=== PATIENT | female | born 1930 | race Caucasian/White ===

== ENCOUNTER 2017-05-20 15:13 | Emergency (ER) | payer MEDICARE ==
[2011-09-16 09:57] VITALS: BMI 27.5
[2017-05-20 18:13] LABS: BASOPHILS 0.4 % (0-2); EOSINOPHILS 1.8 % (0-7); HEMATOCRIT 44.3 % (36.0-48.0); HEMOGLOBIN 14.8 g/dL (12-16); IMMATURE GRANULOCYTES 0.3 % (0-5); LYMPHOCYTES 33.6 % (15-50); MCHC 33.4 g/dL (31.0-37.0); MCV 92.9 fL (80.0-100.0); MEAN PLATELET VOLUME 10.2 fL (7.4-10.4); MONOCYTES 10.9 % (2-11); PLATELET COUNT 198 10x3/uL (130-400); RBC 4.77 10x6/uL (4.00-5.40); RDW 14.2 % (11.5-14.5); WBC 7.6 10x3/uL (4.8-10.8)
[2017-05-20 18:27] LABS: ALBUMIN 3.7 g/dL (3.4-5.0); ALKALINE PHOSPHATASE 98 U/L (46-116); ALT (SGPT) 17 U/L (10-68); BILIRUBIN - TOTAL 0.52 mg/dL (0.2-1.3); CALC OSMOLALITY 280 mosm/kg (275-300); CALCIUM 9.1 mg/dL (8.5-10.1); CHLORIDE - SERUM 105 mmol/L (98-107); CREATININE - SERUM 0.9 mg/dL (0.6-1.3); GLUCOSE 84 mg/dL (74-106); POTASSIUM - SERUM 3.8 mmol/L (3.5-5.1); PROTEIN - SERUM 7.1 g/dL (6.4-8.2); SODIUM 140 mmol/L (136-145); UREA NITROGEN 22 mg/dL (7-18); eGFR NON AFRICAN AMERICAN 63 mL/min (90-120)
[2017-05-20 18:43] LABS: TROPONIN-I < 0.017 ng/mL (0.000-0.060)
== END 2017-05-20 19:55 | disposition home or self-care (01) ==
LOC: D.ER 15:13
PROVIDERS: Physician Assistant Medical
DX: T14.8XXA Other injury of unspecified body region, initial encounter (principal); X58.XXXA Exposure to other specified factors, initial encounter; Y93.89 Activity, other specified; Y92.019 Unspecified place in single-family (private) house as the place of occurrence of the external cause; R00.1 Bradycardia, unspecified; I45.10 Unspecified right bundle-branch block; I44.0 Atrioventricular block, first degree

== ENCOUNTER 2017-06-03 13:46 | Emergency (ER) | payer MEDICARE ==
[2011-09-16 09:57] VITALS: BMI 27.5
== END 2017-06-03 17:00 | disposition home or self-care (01) ==
LOC: D.ER 13:46
DX: S00.03XA Contusion of scalp, initial encounter (principal); W07.XXXA Fall from chair, initial encounter; Y93.89 Activity, other specified; Y92.019 Unspecified place in single-family (private) house as the place of occurrence of the external cause; M54.2 Cervicalgia; I10 Essential (primary) hypertension; I44.0 Atrioventricular block, first degree; I45.10 Unspecified right bundle-branch block

== ENCOUNTER 2017-06-26 09:57 | Inpatient (IN) | payer MEDICARE ==
[~2017-06-26] VITALS: Ht 160 cm; Wt 70.7 kg
--- NOTE | ~2017-06-26 | EC ---
PATIENT:ISABELLE BAGLEY DATE OF SERVICE: 06/26/17 SEX: F MEDICAL RECORD: [id number] DATE OF : 30 LOCATION:D.M2 D.211 AGE OF PATIENT: 86 ADMISSION DATE: 06/26/17 REFERRING PHYSICIAN: INTERPRETING PHYSICIAN: APRIL DESHPANDE MD ECHOCARDIOGRAM REPORT ECHO CHARGES 4 ECHO COMPLETE Date: 06/27 CLINICAL DIAGNOSIS: SYNCOPE ECHOCARDIOGRAPHIC MEASUREMENTS (adult normal given) AC root (d.<3.7cm) 3.1 cm LV Septum d (<1.2 cm> 1.6 cm Valve Excursion 1.9 cm LV Septum (systole) 2.2 cm Left Atria (s.<4.0cm> 3.7 cm LVPW d(<1.2cm) 1.4 cm RV (d.<2.3cm) 2.5 cm LVPW (sytole) 2.2 cm LV diastole(<5.6CM) 4.8 cm MV E-F(>70mm/sec) cm LV systole 2.3 cm LVOT Diameter 1.9 cm MV exc.(>10mm) cm Est.ejection fraction (50-75%) % DOPPLER: LVIT cm/sec A 117 cm/sec E 63.0 cm/sec LA cm/sec RVSP 45.0 mmHg LVOT 100 cm/sec AOP1/2T m/s Asc. Ao 140 cm/sec RVOT 85.0 cm/sec RA cm/sec PA 96.0 cm/sec AV Gradient Peak 7.9 mmHg AV Mean 4.1 mmHg AV Area 2.2 cm MV Gradient Peak 7.6 mmHg MV Mean 2.4 mmHg MV Area cm COMMENTS: Wireline Operator: 1 RENA LOPEZOE Plater Hot Dip: 1 Dr. Deshpande TAPE# PACS Pericardial Effusion N DATE OF SERVICE: PROCEDURE: Echocardiogram. FINDINGS: 1. Left ventricular chamber size is within normal limits. Left ventricular systolic function is normal. Overall ejection fraction estimated at 65%. 2. Left atrium, right atrium, and right ventricle chamber sizes are within normal limits. 3. Valvular structures have normal structure and motion. ECHOCARDIOGRAM REPORT [id number] ISABELLE BAGLEY 4. Doppler interrogation reveals trace mitral regurgitation, moderate tricuspid regurgitation, no other valvular insufficiency or stenosis. Pulmonary systolic pressure is estimated at 45 mmHg. 5. No evidence of pericardial effusion or left ventricular thrombus. TRANSINT:[id number] Voice Confirmation ID: [id number] DOCUMENT ID: [id number] APRIL DESHPANDE MD at 0956 CC: [id number] DICTATION DATE: 06/28/17 1134 GROUP PROGRAM MANAGER: 06/28/17 1416 DIS IN 06/28/17 [place] [id number] [place] [id number]
[2017-06-26 10:52] LABS: BASOPHILS 0.4 % (0-2); EOSINOPHILS 1.8 % (0-7); HEMATOCRIT 45.5 % (36.0-48.0); HEMOGLOBIN 15.2 g/dL (12-16); IMMATURE GRANULOCYTES 0.2 % (0-5); LYMPHOCYTES 24.8 % (15-50); MCH 30.8 pg (26.0-34.0); MCHC 33.4 g/dL (31.0-37.0); MCV 92.3 fL (80.0-100.0); MEAN PLATELET VOLUME 10.3 fL (7.4-10.4); MONOCYTES 9.9 % (2-11); NEUTROPHILS 62.9 % (40-80); PLATELET COUNT 207 10x3/uL (130-400); RBC 4.93 10x6/uL (4.00-5.40); RDW 14.3 % (11.5-14.5); WBC 5.5 10x3/uL (4.8-10.8)
[2017-06-26 11:19] LABS: APPEARANCE CLEAR (CLEAR); BILIRUBIN NEGATIVE (NEGATIVE); COLOR YELLOW (YELLOW); GLUCOSE NEGATIVE (NEGATIVE); KETONE NEGATIVE (NEGATIVE); NITRITE NEGATIVE (NEGATIVE); PROTEIN NEGATIVE (NEGATIVE); SPECIFIC GRAVITY 1.005 (1.005-1.020); UROBILINOGEN NORMAL (NORMAL)
[2017-06-26 11:20] LABS: BACTERIA FEW /hpf (NONE SEEN); EPITHELIAL CELLS 0-5 /hpf (0-5); RED CELLS - URINE 0-5 /hpf (0-5); WHITE CELLS - URINE 0-5 /hpf (0-5)
[2017-06-26 11:29] LABS: ALBUMIN 3.5 g/dL (3.4-5.0); ALKALINE PHOSPHATASE 203 U/L (46-116); ALT (SGPT) 18 U/L (10-68); CALC OSMOLALITY 280 mosm/kg (275-300); CALCIUM 8.9 mg/dL (8.5-10.1); CARBON DIOXIDE 27.5 mmol/L (21.0-32.0); CHLORIDE - SERUM 106 mmol/L (98-107); CREATININE - SERUM 0.9 mg/dL (0.6-1.3); GLUCOSE 100 mg/dL (74-106); PROTEIN - SERUM 7.2 g/dL (6.4-8.2); SODIUM 140 mmol/L (136-145); UREA NITROGEN 19 mg/dL (7-18); eGFR NON AFRICAN AMERICAN 63 mL/min (90-120)
[2017-06-26 11:38] LABS: CREATINE KINASE 71 UL (21-215); PRO BNP 992 pg/mL (0-450); TROPONIN-I < 0.017 ng/mL (0.000-0.060)
[2017-06-26 19:49] VITALS: BP 162/64; Ht 160 cm; Wt 70.7 kg
[2017-06-26 20:00] VITALS: BP 162/64
[2017-06-26] MEDS ORDERED: LOPRESSOR25 MG PO (20:02)
[2017-06-26] MEDS ORDERED: BAYER CHEWABLE81 MG PO (20:02)
[2017-06-26] MEDS ORDERED: PRAVASTATIN SOD10 MG PO (20:02)
[2017-06-26] MEDS ORDERED: LISINOPRIL5 MG PO (20:02)
[2017-06-27] VITALS (8 sets, daily range): BP systolic 135–163; BP diastolic 55–78
[2017-06-27 06:06] LABS: BASOPHILS 0.2 % (0-2); EOSINOPHILS 2.4 % (0-7); HEMATOCRIT 41.6 % (36.0-48.0); HEMOGLOBIN 13.7 g/dL (12-16); IMMATURE GRANULOCYTES 0.4 % (0-5); LYMPHOCYTES 31.6 % (15-50); MCH 30.6 pg (26.0-34.0); MCHC 32.9 g/dL (31.0-37.0); MCV 92.9 fL (80.0-100.0); MEAN PLATELET VOLUME 10.3 fL (7.4-10.4); MONOCYTES 9.7 % (2-11); NEUTROPHILS 55.7 % (40-80); PLATELET COUNT 193 10x3/uL (130-400); RBC 4.48 10x6/uL (4.00-5.40); RDW 14.4 % (11.5-14.5); WBC 5.5 10x3/uL (4.8-10.8)
[2017-06-27 06:25] LABS: CALCIUM 8.3 mg/dL (8.5-10.1); CARBON DIOXIDE 27.1 mmol/L (21.0-32.0); CREATININE - SERUM 0.9 mg/dL (0.6-1.3); POTASSIUM - SERUM 4.1 mmol/L (3.5-5.1)
[2017-06-28] VITALS (7 sets, daily range): BP systolic 132–188; BP diastolic 50–102
[2017-06-28 06:33] LABS: BASOPHILS 0.3 % (0-2); HEMATOCRIT 42.4 % (36.0-48.0); HEMOGLOBIN 14.1 g/dL (12-16); IMMATURE GRANULOCYTES 0.2 % (0-5); MCH 30.7 pg (26.0-34.0); MCHC 33.3 g/dL (31.0-37.0); MCV 92.4 fL (80.0-100.0); MEAN PLATELET VOLUME 10.4 fL (7.4-10.4); MONOCYTES 9.9 % (2-11); NEUTROPHILS 54.6 % (40-80); PLATELET COUNT 208 10x3/uL (130-400); RBC 4.59 10x6/uL (4.00-5.40); RDW 14.3 % (11.5-14.5); WBC 5.9 10x3/uL (4.8-10.8)
[2017-06-28 06:54] LABS: ANION GAP 14.1 mmol/L (8-16); CALCIUM 8.2 mg/dL (8.5-10.1); CARBON DIOXIDE 24.9 mmol/L (21.0-32.0)
== END 2017-06-28 17:11 | disposition home or self-care (01) | DRG 312 ==
LOC: D.ER 09:57 → D.EDHOLD 13:50 → D.M2 13:50
PROVIDERS: Family Medicine; Nurse Practitioner Family
DX: R55 Syncope and collapse (principal); R00.1 Bradycardia, unspecified; I10 Essential (primary) hypertension; T44.7X5A Adverse effect of beta-adrenoreceptor antagonists, initial encounter; Y92.009 Unspecified place in unspecified non-institutional (private) residence as the place of occurrence of the external cause; Z86.73 Personal history of transient ischemic attack (TIA), and cerebral infarction without residual deficits

== ENCOUNTER 2017-11-02 18:32 | Observation (INO) | payer MEDICARE ==
[~2017-11-02] VITALS: Ht 160 cm; Wt 68.0 kg
[~2017-11-02 18:32] MED LIST: BAYER CHEWABLE81 MG PO; LISINOPRIL5 MG PO; LOPRESSOR25 MG PO; PRAVASTATIN SOD10 MG PO
[2017-11-02 19:00] LABS: BASOPHILS 0.3 % (0-2); EOSINOPHILS 1.9 % (0-7); HEMATOCRIT 44.1 % (36.0-48.0); HEMOGLOBIN 14.6 g/dL (12-16); IMMATURE GRANULOCYTES 0.1 % (0-5); LYMPHOCYTES 34.1 % (15-50); MCH 30.5 pg (26.0-34.0); MCHC 33.1 g/dL (31.0-37.0); MCV 92.1 fL (80.0-100.0); MEAN PLATELET VOLUME 10.6 fL (7.4-10.4); MONOCYTES 12.6 % (2-11); PLATELET COUNT 205 10x3/uL (130-400); RBC 4.79 10x6/uL (4.00-5.40); RDW 14.1 % (11.5-14.5); WBC 7.8 10x3/uL (4.8-10.8)
[2017-11-02 19:21] LABS: ALBUMIN 3.5 g/dL (3.4-5.0); ALKALINE PHOSPHATASE 95 U/L (46-116); ALT (SGPT) 15 U/L (10-68); BILIRUBIN - TOTAL 0.52 mg/dL (0.2-1.3); CALC OSMOLALITY 282 mosm/kg (275-300); CALCIUM 8.3 mg/dL (8.5-10.1); CARBON DIOXIDE 26.3 mmol/L (21.0-32.0); CHLORIDE - SERUM 106 mmol/L (98-107); CREATININE - SERUM 1.2 mg/dL (0.6-1.3); GLUCOSE 91 mg/dL (74-106); POTASSIUM - SERUM 4.2 mmol/L (3.5-5.1); SODIUM 140 mmol/L (136-145); UREA NITROGEN 25 mg/dL (7-18); eGFR NON AFRICAN AMERICAN 45 mL/min (90-120)
[2017-11-02 19:30] VITALS: BP 157/81
[2017-11-02 19:32] LABS: CKMB 1.4 U/L (0.0-3.6); CREATINE KINASE 69 UL (21-215)
[2017-11-02 19:33] LABS: TROPONIN-I < 0.017 ng/mL (0.000-0.060)
[2017-11-02 20:30] VITALS: BP 166/62
[2017-11-02 21:30] VITALS: BP 182/74
[2017-11-02 21:38] LABS: APPEARANCE CLEAR (CLEAR); BACTERIA FEW /hpf (NONE SEEN); BILIRUBIN NEGATIVE (NEGATIVE); COLOR YELLOW (YELLOW); EPITHELIAL CELLS 0-5 /hpf (0-5); GLUCOSE NEGATIVE (NEGATIVE); KETONE NEGATIVE (NEGATIVE); NITRITE NEGATIVE (NEGATIVE); PROTEIN NEGATIVE (NEGATIVE); RED CELLS - URINE 0-5 /hpf (0-5); UROBILINOGEN NORMAL (NORMAL); WHITE CELLS - URINE 0-5 /hpf (0-5)
[2017-11-02 22:00] VITALS: BP 169/78
[2017-11-02 23:59] VITALS: Ht 160 cm; Wt 68.0 kg
[2017-11-03 04:00] VITALS: BP 133/68
[2017-11-03 05:39] LABS: BASOPHILS 0.2 % (0-2); EOSINOPHILS 2.3 % (0-7); HEMATOCRIT 40.6 % (36.0-48.0); HEMOGLOBIN 13.9 g/dL (12-16); IMMATURE GRANULOCYTES 0.4 % (0-5); LYMPHOCYTES 39.4 % (15-50); MCH 31.3 pg (26.0-34.0); MCHC 34.2 g/dL (31.0-37.0); MCV 91.4 fL (80.0-100.0); MEAN PLATELET VOLUME 10.6 fL (7.4-10.4); MONOCYTES 9.8 % (2-11); NEUTROPHILS 47.9 % (40-80); PLATELET COUNT 191 10x3/uL (130-400); RBC 4.44 10x6/uL (4.00-5.40); RDW 14.1 % (11.5-14.5)
[2017-11-03 05:48] LABS: WBC 5.6 10x3/uL (4.8-10.8)
[2017-11-03 05:58] LABS: CALC OSMOLALITY 281 mosm/kg (275-300); CARBON DIOXIDE 27.8 mmol/L (21.0-32.0); CHLORIDE - SERUM 106 mmol/L (98-107); GLUCOSE 96 mg/dL (74-106); POTASSIUM - SERUM 4.2 mmol/L (3.5-5.1); SODIUM 139 mmol/L (136-145); UREA NITROGEN 24 mg/dL (7-18); eGFR NON AFRICAN AMERICAN 55 mL/min (90-120)
[2017-11-03 06:00] LABS: TROPONIN-I < 0.017 ng/mL (0.000-0.060)
[2017-11-03 08:06] VITALS: BP 150/75
== END 2017-11-03 12:34 | disposition home or self-care (01) ==
LOC: D.ER 18:32 → D.M2 21:06 → D.EDHOLD 21:06 → OBSVTIME 21:06 → D.M2 22:58
PROVIDERS: Family Medicine
DX: R07.9 Chest pain, unspecified (principal); Z86.73 Personal history of transient ischemic attack (TIA), and cerebral infarction without residual deficits; I10 Essential (primary) hypertension; N39.0 Urinary tract infection, site not specified

== ENCOUNTER 2017-11-04 16:18 | Emergency (ER) | payer MEDICARE ==
[~2017-11-04] VITALS: Ht 160 cm; Wt 68.2 kg
[2017-11-04 16:29] VITALS: Ht 160 cm; Wt 68.2 kg
[2017-11-04 17:38] LABS: BASOPHILS 0.4 % (0-2); EOSINOPHILS 1.3 % (0-7); HEMATOCRIT 43.8 % (36.0-48.0); HEMOGLOBIN 14.7 g/dL (12-16); IMMATURE GRANULOCYTES 0.4 % (0-5); LYMPHOCYTES 26.8 % (15-50); MCH 30.7 pg (26.0-34.0); MCHC 33.6 g/dL (31.0-37.0); MCV 91.4 fL (80.0-100.0); MEAN PLATELET VOLUME 10.3 fL (7.4-10.4); MONOCYTES 8.5 % (2-11); NEUTROPHILS 62.6 % (40-80); PLATELET COUNT 198 10x3/uL (130-400); RBC 4.79 10x6/uL (4.00-5.40); RDW 14.1 % (11.5-14.5)
[2017-11-04 17:47] LABS: WBC 7.6 10x3/uL (4.8-10.8)
[2017-11-04 18:06] LABS: INR 1.02 (0.85-1.17)
[2017-11-04 18:11] LABS: ALBUMIN 3.4 g/dL (3.4-5.0); ALKALINE PHOSPHATASE 90 U/L (46-116); ALT (SGPT) 12 U/L (10-68); BILIRUBIN - TOTAL 0.43 mg/dL (0.2-1.3); CALC OSMOLALITY 281 mosm/kg (275-300); CALCIUM 8.8 mg/dL (8.5-10.1); CARBON DIOXIDE 25.7 mmol/L (21.0-32.0); CHLORIDE - SERUM 104 mmol/L (98-107); CREATININE - SERUM 1.2 mg/dL (0.6-1.3); GLUCOSE 106 mg/dL (74-106); POTASSIUM - SERUM 4.4 mmol/L (3.5-5.1); SODIUM 138 mmol/L (136-145); UREA NITROGEN 28 mg/dL (7-18); eGFR NON AFRICAN AMERICAN 45 mL/min (90-120)
[2017-11-04 18:16] LABS: TROPONIN-I < 0.017 ng/mL (0.000-0.060)
[2017-11-04 23:01] VITALS: BP 165/72
== END 2017-11-04 23:45 | disposition other institution (70) ==
LOC: D.ER 16:18
PROVIDERS: Emergency Medicine
DX: G45.9 Transient cerebral ischemic attack, unspecified (principal); R47.81 Slurred speech; R29.810 Facial weakness; I10 Essential (primary) hypertension

== ENCOUNTER 2017-11-21 12:36 | Emergency (ER) | payer MEDICARE ==
[~2017-11-21] VITALS: Ht 160 cm; Wt 2.0 kg
[2017-11-21 12:40] VITALS: Ht 160 cm; Wt 2.0 kg
[2017-11-21 12:44] LABS: BASOPHILS 0.4 % (0-2); EOSINOPHILS 0.9 % (0-7); HEMATOCRIT 44.8 % (36.0-48.0); HEMOGLOBIN 15.2 g/dL (12-16); IMMATURE GRANULOCYTES 0.1 % (0-5); LYMPHOCYTES 28.9 % (15-50); MCH 30.9 pg (26.0-34.0); MCHC 33.9 g/dL (31.0-37.0); MCV 91.1 fL (80.0-100.0); MEAN PLATELET VOLUME 10.5 fL (7.4-10.4); MONOCYTES 10.3 % (2-11); NEUTROPHILS 59.4 % (40-80); PLATELET COUNT 185 10x3/uL (130-400); RBC 4.92 10x6/uL (4.00-5.40); RDW 13.9 % (11.5-14.5)
[2017-11-21 13:04] LABS: INR 1.04 (0.85-1.17); PROTIME 13.2 SECONDS (11.6-15.0)
[2017-11-21 13:05] LABS: APTT 31.2 SECONDS (22.8-39.4)
[2017-11-21 13:12] LABS: ALBUMIN 3.6 g/dL (3.4-5.0); ALKALINE PHOSPHATASE 85 U/L (46-116); ALT (SGPT) 18 U/L (10-68); BILIRUBIN - TOTAL 0.93 mg/dL (0.2-1.3); CALC OSMOLALITY 279 mosm/kg (275-300); CALCIUM 8.6 mg/dL (8.5-10.1); CARBON DIOXIDE 27.6 mmol/L (21.0-32.0); CHLORIDE - SERUM 103 mmol/L (98-107); GLUCOSE 90 mg/dL (74-106); POTASSIUM - SERUM 4.1 mmol/L (3.5-5.1); PROTEIN - SERUM 7.1 g/dL (6.4-8.2); SODIUM 140 mmol/L (136-145); UREA NITROGEN 16 mg/dL (7-18); eGFR NON AFRICAN AMERICAN 55 mL/min (90-120)
[2017-11-21 13:16] LABS: TROPONIN-I < 0.017 ng/mL (0.000-0.060)
[2017-11-21 15:40] VITALS: BP 176/82
== END 2017-11-21 16:24 | disposition other institution (70) ==
LOC: D.ER 12:36
PROVIDERS: Family Medicine
DX: I63.9 Cerebral infarction, unspecified (principal); R47.1 Dysarthria and anarthria; G81.94 Hemiplegia, unspecified affecting left nondominant side; R29.810 Facial weakness

== ENCOUNTER 2018-05-25 16:37 | Inpatient (IN) | payer MEDICARE, OTHER ==
[~2018-05-25] VITALS: Ht 160 cm; Wt 65.8 kg
--- NOTE | 2018-05-25 16:48 | NUR ---
TRAUMA BAND [id number] IN PLACE PER EMS
[2018-05-25 18:20] LABS: BASOPHILS 0.2 % (0-2); EOSINOPHILS 0.7 % (0-7); HEMATOCRIT 43.2 % (36.0-48.0); HEMOGLOBIN 14.4 g/dL (12-16); IMMATURE GRANULOCYTES 0.2 % (0-5); LYMPHOCYTES 16.1 % (15-50); MCH 30.6 pg (26.0-34.0); MCHC 33.3 g/dL (31.0-37.0); MCV 91.9 fL (80.0-100.0); MEAN PLATELET VOLUME 10.3 fL (7.4-10.4); MONOCYTES 8.4 % (2-11); NEUTROPHILS 74.4 % (40-80); PLATELET COUNT 183 10x3/uL (130-400); RDW 13.9 % (11.5-14.5); WBC 8.7 10x3/uL (4.8-10.8)
[2018-05-25 18:39] LABS: ALBUMIN 3.5 g/dL (3.4-5.0); ANION GAP 12.3 mmol/L (8-16); BILIRUBIN - TOTAL 0.51 mg/dL (0.2-1.3); CALCIUM 8.3 mg/dL (8.5-10.1); CREATININE - SERUM 0.8 mg/dL (0.6-1.3); POTASSIUM - SERUM 4.3 mmol/L (3.5-5.1)
[2018-05-25] MEDS ORDERED: LISINOPRIL5 MG PO (21:39)
[2018-05-25 22:06] VITALS: BMI 25.7
[2018-05-26 00:31] VITALS: BP 146/73
[2018-05-26 04:17] VITALS: BP 146/69
[2018-05-26 04:36] LABS: BASOPHILS 0.1 % (0-2); EOSINOPHILS 0 % (0-7); HEMATOCRIT 39.9 % (36.0-48.0); HEMOGLOBIN 13.1 g/dL (12-16); IMMATURE GRANULOCYTES 0.2 % (0-5); LYMPHOCYTES 14.5 % (15-50); MCH 30.4 pg (26.0-34.0); MCHC 32.8 g/dL (31.0-37.0); MCV 92.6 fL (80.0-100.0); MEAN PLATELET VOLUME 10.6 fL (7.4-10.4); MONOCYTES 9.2 % (2-11); PLATELET COUNT 195 10x3/uL (130-400); RBC 4.31 10x6/uL (4.00-5.40); RDW 14.1 % (11.5-14.5); WBC 9.9 10x3/uL (4.8-10.8)
[2018-05-26 04:40] LABS: INR 1.09 (0.85-1.17); PROTIME 13.6 SECONDS (11.6-15.0)
[2018-05-26 05:03] LABS: ANION GAP 11.6 mmol/L (8-16); CALCIUM 8.2 mg/dL (8.5-10.1); CARBON DIOXIDE 28.1 mmol/L (21.0-32.0); CREATININE - SERUM 0.9 mg/dL (0.6-1.3); POTASSIUM - SERUM 4.7 mmol/L (3.5-5.1)
[2018-05-26 09:38] VITALS: BP 143/60
[2018-05-26 10:05] VITALS: Ht 160 cm; Wt 65.8 kg
[2018-05-26 13:55] VITALS: BP 148/65
--- NOTE | 2018-05-26 15:55 | NUR ---
SPOKE WITH PATIENTS SISTER ABOUT SURGERY FOR PATIENT. STATED SHE WOULD LIKE TO SPEAK WITH ANESTHESIA BEFORE THEY DECIDE. TRANSFERRED CALL TO PATIENT TO SPEAK WITH SISTER ABOUT SURGERY. EXPLAINED AFTER SHE SPOKE TO HER SISTER IF SHE WANTED TO HAVE SURGERY I WOULD LET ANESTHESIA KNOW TO CALL THE PATIENTS SISTER. VERBALIZED UNDERSTANDING.
--- NOTE | 2018-05-26 16:00 | MORECARE ---
CASE MANAGEMENT DISCHARGE SUMMARY PATIENT: ISABELLE BAGLEY UNIT: [id number] ADM DATE: 05/25/18 AGE: 87 : 30 SEX: F ROOM/BED: D.2209 AUTHOR: ELIDA SHUKLA PHYSICIAN: REFERRING PHYSICIAN: MIN SCOTT MD DATE OF SERVICE: 05/26/18 Discharge Plan Patient Name: ISABELLE BAGLEY Facility: [facility]:[place] : 1930 Planned Disposition: Inpatient Rehab Anticipated Discharge Date: Discharge Date: Expected LOS: Initial Reviewer: [email or web address] Initial Review Date: 05/25/2018 Generated: 05/26/18 4:59 pm Comments DCP- Discharge Planning Updated by [email or web address]: Latha Parekh on 05/26/18 2:[address] Patient Name: ISABELLE BAGLEY Admission Status: ER Accout number: [id number] Admission Date: 05-25-2018 : 1930 Admission Diagnosis: Attending: MIN SCOTT Current LOS: 1 Anticipated DC Date: Planned Disposition: Inpatient Rehab Primary Insurance: MEDICARE A & B Discharge Planning Comments: CM met with patient to assess discharge planning needs. Patient stated that she lives independently at home where she lives by herself. She stated that her home is a safe place, her sister will be driving her home. She has a walker and a cane. I asked her about surgery and she thinks she should have surgery now. After surgery she would like to go to inpatient rehab. CM will continue to follow and assist with dc planning needs. Bead Maker: Latha Parekh DCPIA - Discharge Planning Initial Assessment Updated by [id number]: Latha Parekh on 05/26/18 3:56 pm * Is the patient Alert and Oriented? Yes * How many steps to enter\exit or inside your home? * PCP TYLER * Pharmacy [facility] [address] * Preadmission Environment Home Alone * ADLs Independent * Equipment Cane Rolling Walker * List name and contact numbers for known caregivers / representatives who currently or will assist patient after discharge: SAMUEL WHITE [phone] * Verbal permission to speak to the caregivers and representatives has been obtained from the patient. Yes * Community resources currently utilized None * Additional services required to return to the preadmission environment? Yes * Can the patient safely return to the preadmission environment? No * Has this patient been hospitalized within the prior 30 days at any hospital? No Patient Name: ISABELLE BAGLEY Page [id number] at 1600 All edits/amendments must be made on the electronic document DICTATION DATE: 05/26/181558 ACID DIPPER: ANNA 05/26/181558 RPT#: [id number] DC DATE: STATUS: ADM IN [facility] [address] [place] [address] END OF REPORT
--- NOTE | 2018-05-26 16:27 | NUR ---
SPOKE WITH DR. GRIFFITHS AT THIS TIME AND EXPLAINED PATIENT WANTED SURGERY NOW BUT WANTS TO WAIT UNTIL SISTER FLYS IN FROM [place]. PHYSICIAN STATED TO JUST CANCEL SURGERY FOR TODAY AND THAT HE WOULD HAVE TO PUT HER ON FOR NEXT WEEK.
[2018-05-26 18:07] VITALS: BP 169/84
--- NOTE | 2018-05-26 19:15 | NUR ---
PT ALERT AND ORIENTED WHEN ENTERING THE ROOM. PT WITH SHOULDER IMMBOLIZER TO THE RIGHT ARM. REQUESTED ASSISTANCE WITH SELF PHONE. NO SCD'S AT THIS TIME. PT WEARING TELEMTRY MONITOR. RIGHT HAND IC WITH NS @ 65 CURRENTLY INFUSING. 2L NASAL CANNULA. NO DISTRESS NOTED. SPOKE WITH PATIENT ABOUT FALL PRECAUTIONS AND TO PLEASE USE CALL LIGHT. PT VERBALIZES UNDERSTANDING.
[2018-05-26 20:53] VITALS: BP 138/61
[2018-05-27 01:19] VITALS: BP 133/66
--- NOTE | 2018-05-27 04:41 | NUR ---
I have reviewed this patient and I concur with the Shift Assessment completed by the Licensed Practical Nurse today this shift.
[2018-05-27 05:27] VITALS: BP 139/64
[2018-05-27 09:19] VITALS: BP 163/73
[2018-05-27 14:25] VITALS: BP 148/71
[2018-05-27 18:05] VITALS: BP 163/80
--- NOTE | 2018-05-27 19:00 | NUR ---
PT ALERT AND ORIENTED WHEN ENTERING THE ROOM. PT STATED THAT HER IV PUMP WENT OFF AND SHE JUMPED AND ACCIDENTALLY PULLED IT OUT. CATHETER INTACT. ASSISTED PT WITH BED WILLIS. NO OTHER COMPLAINTS AT THIS TIME.
[2018-05-27 20:00] VITALS: BP 136/63
[2018-05-28] VITALS (15 sets, daily range): BP systolic 104–177; BP diastolic 43–88
--- NOTE | 2018-05-28 00:55 | NUR ---
PT FAMILY ARRIVED TO FLOOR FROM [place]. PT FAMILY REQUESTING "SET IN STONE TIME FOR SURGERY". DISCUSSED WITH BOTH PATIENT AND PATIENT FAMILY THAT ORTHO SURGERIES ARE UNPREDICATABLE AND AT THIS GIVEN TIME IF THE DOCTOR STATED 0900 TO PT AND FAMILY, THEN THAT IS THE PLAN. OBTAINED PT KEYS AND GARAGE HUMAN RESOURCES HR REPRESENTATIVE PER PT REQUEST TO GIVE FAMILY MEMBERS.
--- NOTE | 2018-05-28 03:24 | NUR ---
AFTER SPEAKING WITH PT FAMILY, IT WAS MADE KNOWN TO THIS NURSE THAT PATIENT TAKES PLAVIX 75 MG DAILY AND HAD BEEN PRIOR TO ACCIDENT. IN MED REC IT SHOWS WHERE MEDICATION WAS PRESCRIBED BY DR. JHAVERI. WILL NOTIFY ORTHO DOCTOR OF PLAVIX AND LATEST COAGS PRIOR TO SURGERY.
--- NOTE | 2018-05-28 04:22 | NUR ---
I have reviewed this patient and I concur with the Shift Assessment completed by the Licensed Practical Nurse today this shift.
--- NOTE | 2018-05-28 07:44 | NUR ---
PATIENT IN BED WITH EYES CLOSED. NO COMPLAINTS. IV INTACT. RESTING QUIETLY. CALL LIGHT WITHIN REACH.
--- NOTE | 2018-05-28 08:55 | NUR ---
PREOP MEDS GIVEN ORDERED. PATIENT READY FOR OR. NURSE ANESTHESIST IN ROOM. FAMILY AT SIDE. CALL LIGHT WITHIN REACH.
--- NOTE | 2018-05-28 08:55 | NUR ---
PATIENT TO SURGERY.
--- NOTE | 2018-05-28 11:30 | NUR ---
PATIENT IN BED BACK FROM SURGERY WITH IV INTACT. VS STABLE. NO COMPLAINTS OR SIGNS OF DISTRESS. CALL LIGHT WITHIN REACH.
--- NOTE | 2018-05-28 13:30 | NUR ---
PATIENT IV RESTARTED IN RIGHT ARM AT THIS TIME X 2 STICKS. PATIENT TOLERATED WITH SMALL AMOUNT OF PAIN. OLD IV OUT WHEN BACK FROM RECOVERY ROOM. ANTIBIOTIC STARTED. CALL LIGHT WITHIN REACH.
--- NOTE | 2018-05-28 13:50 | NUR ---
PATIENT IN BED WITH NO COMPLAINTS OR SIGNS OF DISTRESS. VS STABLE. IV INTACT. CALL LIGHT WITHIN REACH.
--- NOTE | 2018-05-28 16:50 | NUR ---
PATIENT IN BED WITH EYES CLOSED RESTING QUIETLY. IV INTACT. NO COMPLAINTS. BSCDS ON AND WORKING. SLING ON AND DRESSING CDI. VS STABLE. NO PAIN AT THIS TIME. CALL LIGHT WITHIN REACH.
--- NOTE | 2018-05-28 18:55 | NUR ---
PATIENT IN BED WITH NO COMPLAINTS. TOLERATED REGULAR DIET. IV INTACT. CALL LIGHT WITHIN REACH.
[2018-05-29] VITALS: BP 115/51
[2018-05-29 03:00] VITALS: BP 123/49
[2018-05-29 05:01] LABS: ANION GAP 13.3 mmol/L (8-16); CARBON DIOXIDE 25.5 mmol/L (21.0-32.0); CREATININE - SERUM 0.9 mg/dL (0.6-1.3); POTASSIUM - SERUM 3.8 mmol/L (3.5-5.1)
--- NOTE | 2018-05-29 05:04 | NUR ---
PT IN BED IN LOW FOWLERS POSITION. ALERT AND ORIENTED X4. RESPIRATIONS EVEN AND UNLABORED. VITAL SIGNS STABLE AND AFEBRILE. NO VISUAL CUES OF DISTRESS NOTED. DENIES ANY OTHER NEEDS AT THIS TIME. BED LOW, SIDE RAILS UP X2. CALL LIGHT IN REACH. WILL CONTINUE TO MONITOR.
--- NOTE | 2018-05-29 08:00 | NUR ---
PATIENT IN BED WITH IV INTACT. NO COMPLAINTS OR SIGNS OF DISTRESS. DENIES ANY NEEDS AT THIS TIME. CALL LIGHT WITHIN REACH.
[2018-05-29 09:23] VITALS: BP 151/66
--- NOTE | 2018-05-29 09:57 | MORECARE ---
CASE MANAGEMENT DISCHARGE SUMMARY PATIENT: ISABELLE BAGLEY ANN UNIT: [id number] ADM DATE: 05/25/18 AGE: 87 : 30 SEX: F ROOM/BED: D.2206 AUTHOR: VAZQUEZ,DOC PHYSICIAN: REFERRING PHYSICIAN: MIN SCOTT MD DATE OF SERVICE: 05/29/18 Discharge Plan Patient Name: ISABELLE BAGLEY Facility: [facility]:[place] : 1930 Planned Disposition: Inpatient Rehab Anticipated Discharge Date: Discharge Date: Expected LOS: Initial Reviewer: [email or web address] Initial Review Date: 05/25/2018 Generated: 05/29/18 10:56 am Comments DCP- Discharge Planning Updated by [email or web address]: Brenna Hauser on 05/29/18 8:[address] Patient Name: ISABELLE BAGLEY Admission Status: ER Accout number: [id number] Admission Date: 05-25-2018 : 1930 Admission Diagnosis: Attending: MIN SCOTT Current LOS: 4 Anticipated DC Date: Planned Disposition: Inpatient Rehab Primary Insurance: MEDICARE A & B Discharge Planning Comments: CM MET WITH PATIENT, SHE WANTS INPATIENT REHAB. IF DOESN'T QUALIFY FOR THAT SHE WANTS SNF AT THE [facility]. DAMION SIGNED. IMM SIGNED. CONTINUE TO FOLLOW AND ASSIST NEEDED WITH DC PLANNING/NEEDS. Stitch Bonding Machine Tender: Brenna Hauser DCP- Discharge Planning Updated by [email or web address]: Latha Parekh on 05/26/18 2:[address] Patient Name: ISABELLE BAGLEY Admission Status: ER Accout number: [id number] Admission Date: 05-25-2018 : 1930 Admission Diagnosis: Attending: MIN SCOTT Current LOS: 1 Anticipated DC Date: Planned Disposition: Inpatient Rehab Primary Insurance: MEDICARE A & B Discharge Planning Comments: CM met with patient to assess discharge planning needs. Patient stated that she lives independently at home where she lives by herself. She stated that her home is a safe place, her sister will be driving her home. She has a walker and a cane. I asked her about surgery and she thinks she should have surgery now. After surgery she would like to go to inpatient rehab. CM will continue to follow and assist with dc planning needs. Stitch Bonding Machine Tender: Latha Parekh DCPIA - Discharge Planning Initial Assessment Updated by [email or web address]: Latha Parekh on 05/26/18 3:56 pm * Is the patient Alert and Oriented? Yes * How many steps to enter\exit or inside your home? * PCP TYLER * [facility] [address] * Preadmission Environment Home Alone * ADLs Independent * Equipment Cane Rolling Walker * List name and contact numbers for known caregivers / representatives who currently or will assist patient after discharge: SAMUEL WHITE [phone] * Verbal permission to speak to the caregivers and representatives has been obtained from the patient. Yes * Community resources currently utilized None * Additional services required to return to the preadmission environment? Yes * Can the patient safely return to the preadmission environment? No * Has this patient been hospitalized within the prior 30 days at any hospital? No Coverage Notice Reviewer: [id number] Tu Hauser Notice Issued Date-Time: 05/29/2018 9:50 Notice Type: IM Discharge Notice Notice Delivered To: Patient Relationship to Patient: Vulcanizing Press Operator Name: Delivery Method: HAND - Hand Delivered Yudelka Days: Prior Verbal Notification: Recipient Understood Notice: Yes Recipient Signature: Yes Med Rec Note Co-signed by Attending: Coverage Notice Comment: Reviewer: [id number] Hauser Notice Issued Date-Time: 05/29/2018 9:50 Notice Type: Patient Choice Letter Notice Delivered To: Patient Relationship to Patient: Vulcanizing Press Operator Name: Delivery Method: HAND - Hand Delivered Yudelka Days: Prior Verbal Notification: Recipient Understood Notice: Yes Recipient Signature: Yes Med Rec Note Co-signed by Attending: Coverage Notice Comment: WANTS [facility], IF DOESN'T QUALIFY .... [facility] FOR SNF [facility] Last DP export: 05/26/18 2:59 p Patient Name: ISABELLE BAGLEY Page [id number] at 0957 All edits/amendments must be made on the electronic document DICTATION DATE: 05/29/18955 BOBBIN COLLECTOR: ANNA 05/29/18955 RPT#: [id number] DC DATE: STATUS: ADM IN [facility] [address] [place] [address] END OF REPORT
--- NOTE | 2018-05-29 11:02 | NUR ---
Rehab Prescreening Consult recieved and the chart was reviewed. She does not have a ARU qualifying diagnosis. Thank You for the referral. Radha Dugan RN Clinical Liaison, Rehab
--- NOTE | 2018-05-29 12:14 | MORECARE ---
CASE MANAGEMENT DISCHARGE SUMMARY PATIENT: ISABELLE BAGLEY ANN UNIT: [id number] ADM DATE: 05/25/18 AGE: 87 : 30 SEX: F ROOM/BED: D.2209 AUTHOR: VAZQUEZ,DOC PHYSICIAN: REFERRING PHYSICIAN: MIN SCOTT MD DATE OF SERVICE: 05/29/18 Discharge Plan Patient Name: ISABELLE BAGLEY Facility: [facility]:[place] : 1930 Planned Disposition: Inpatient Rehab Anticipated Discharge Date: Discharge Date: Expected LOS: Initial Reviewer: [id number] Initial Review Date: 05/25/2018 Generated: 05/29/18 1:13 pm Comments DCP- Discharge Planning Updated by [id number]: Brenna Hauser on 05/29/18 11:[address] Patient Name: ISABELLE BAGLEY Admission Status: ER Accout number: [id number] Admission Date: 05-25-2018 : 1930 Admission Diagnosis: Attending: MIN SCOTT Current LOS: 4 Anticipated DC Date: Planned Disposition: Inpatient Rehab Primary Insurance: MEDICARE A & B Discharge Planning Comments: CM MET WITH PATIENT, SHE WANTS INPATIENT REHAB. IF DOESN'T QUALIFY FOR THAT SHE WANTS SNF AT [facility]. DAMION SIGNED. IMM SIGNED. CONTINUE TO FOLLOW AND ASSIST NEEDED WITH DC PLANNING/NEEDS. Shaping Machine Operator: Brenna Hauser Appended by Brenna Hauser on 05/29/2018 12:10 CDT: REFERRAL FAXED TO THE [facility] FOR SNF. [facility]. DCP- Discharge Planning Updated by [email or web address]: Latha Parekh on 05/26/18 2:[address] Patient Name: ISABELLE BAGLEY Admission Status: ER Accout number: [id number] Admission Date: 05-25-2018 : 1930 Admission Diagnosis: Attending: MIN SCOTT Current LOS: 1 Anticipated DC Date: Planned Disposition: Inpatient Rehab Primary Insurance: MEDICARE A & B Discharge Planning Comments: CM met with patient to assess discharge planning needs. Patient stated that she lives independently at home where she lives by herself. She stated that her home is a safe place, her sister will be driving her home. She has a walker and a cane. I asked her about surgery and she thinks she should have surgery now. After surgery she would like to go to inpatient rehab. CM will continue to follow and assist with dc planning needs. Shaping Machine Operator: Latha Parekh DCPIA - Discharge Planning Initial Assessment Updated by [id number]: Latha Iglesia on 05/26/18 3:56 pm * Is the patient Alert and Oriented? Yes * How many steps to enter\exit or inside your home? * PCP TYLER * [facility] [address] * Preadmission Environment Home Alone * ADLs Independent * Equipment Cane Rolling Walker * List name and contact numbers for known caregivers / representatives who currently or will assist patient after discharge: SAMUEL WHITE [phone] * Verbal permission to speak to the caregivers and representatives has been obtained from the patient. Yes * Community resources currently utilized None * Additional services required to return to the preadmission environment? Yes * Can the patient safely return to the preadmission environment? No * Has this patient been hospitalized within the prior 30 days at any hospital? No External Providers External Provider: [facility] and [facility] Next Contact Date: Service Request Date: Service Type: Resolution: Reviewer: Comments: Coverage Notice Reviewer: [email or web address] Tu Hauser Notice Issued Date-Time: 05/29/2018 9:50 Notice Type: IM Discharge Notice Notice Delivered To: Patient Relationship to Patient: Endoscopy Support Specialist Name: Delivery Method: HAND - Hand Delivered Yudelka Days: Prior Verbal Notification: Recipient Understood Notice: Yes Recipient Signature: Yes Med Rec Note Co-signed by Attending: Coverage Notice Comment: Reviewer: [email or web address] Tu Hauser Notice Issued Date-Time: 05/29/2018 9:50 Notice Type: Patient Choice Letter Notice Delivered To: Patient Relationship to Patient: Endoscopy Support Specialist Name: Delivery Method: HAND - Hand Delivered Yudelka Days: Prior Verbal Notification: Recipient Understood Notice: Yes Recipient Signature: Yes Med Rec Note Co-signed by Attending: Coverage Notice Comment: WANTS [facility], IF DOESN'T QUALIFY .... [facility] FOR SNF [facility] Last DP export: 05/29/18 8:57 a Patient Name: ISABELLE BAGLEY Page [phone] at 1214 All edits/amendments must be made on the electronic document DICTATION DATE: 05/29/18 121 ANGLEDOZER OPERATOR: ANNA 05/29/18 1213 RPT#: [id number] DC DATE: STATUS: ADM IN [facility] [address] [place] [address] END OF REPORT
[2018-05-29 13:49] VITALS: BP 162/66
--- NOTE | 2018-05-29 13:52 | MORECARE ---
CASE MANAGEMENT DISCHARGE SUMMARY PATIENT: ISABELLE BAGLEY ANN UNIT: [id number] ADM DATE: 05/25/18 AGE: 87 : 30 SEX: F ROOM/BED: D.2209 AUTHOR: VAZQUEZ,DOC PHYSICIAN: REFERRING PHYSICIAN: MIN SCOTT MD DATE OF SERVICE: 05/29/18 Discharge Plan Patient Name: ISABELLE BAGLEY Facility: [facility]:[place] : 1930 Planned Disposition: [facility]cf Facility Anticipated Discharge Date: Discharge Date: Expected LOS: Initial Reviewer: [email or web address] Initial Review Date: 05/25/2018 Generated: 05/29/18 2:52 pm Comments DCP- Discharge Planning Updated by [id number]: Brenna Hauser on 05/29/18 11:[address] Patient Name: ISABELLE BAGLEY Admission Status: ER Accout number: [id number] Admission Date: 05-25-2018 : 1930 Admission Diagnosis: Attending: MIN SCOTT Current LOS: 4 Anticipated DC Date: Planned Disposition: Inpatient Rehab Primary Insurance: MEDICARE A & B Discharge Planning Comments: CM MET WITH PATIENT, SHE WANTS INPATIENT REHAB. IF DOESN'T QUALIFY FOR THAT SHE WANTS SNF AT THE [facility] OR [facility]. DAMION SIGNED. IMM SIGNED. CONTINUE TO FOLLOW AND ASSIST NEEDED WITH DC PLANNING/NEEDS. Maintenance Journeyman: Brenna Hauser Appended by Brenna Hauser on 05/29/2018 12:10 CDT: REFERRAL FAXED TO THE [facility] FOR SNF. [facility]. DCP- Discharge Planning Updated by [id number]: Latha Parekh on 05/26/18 2:[address] Patient Name: ISABELLE BAGLEY Admission Status: ER Accout number: [id number] Admission Date: 05-25-2018 : 1930 Admission Diagnosis: Attending: MIN SCOTT Current LOS: 1 Anticipated DC Date: Planned Disposition: Inpatient Rehab Primary Insurance: MEDICARE A & B Discharge Planning Comments: CM met with patient to assess discharge planning needs. Patient stated that she lives independently at home where she lives by herself. She stated that her home is a safe place, her sister will be driving her home. She has a walker and a cane. I asked her about surgery and she thinks she should have surgery now. After surgery she would like to go to inpatient rehab. CM will continue to follow and assist with dc planning needs. Maintenance Journeyman: Latha Parekh DCPIA - Discharge Planning Initial Assessment Updated by [email or web address]: Latha Parekh on 05/26/18 3:56 pm * Is the patient Alert and Oriented? Yes * How many steps to enter\exit or inside your home? * PCP TYLER * [facility] [address] * Preadmission Environment Home Alone * ADLs Independent * Equipment Cane Rolling Walker * List name and contact numbers for known caregivers / representatives who currently or will assist patient after discharge: SAMUEL WHITE [phone] * Verbal permission to speak to the caregivers and representatives has been obtained from the patient. Yes * Community resources currently utilized None * Additional services required to return to the preadmission environment? Yes * Can the patient safely return to the preadmission environment? No * Has this patient been hospitalized within the prior 30 days at any hospital? No Coverage Notice Reviewer: [email or web address] Tu Hauser Notice Issued Date-Time: 05/29/2018 9:50 Notice Type: IM Discharge Notice Notice Delivered To: Patient Relationship to Patient: Beam House Inspector Name: Delivery Method: HAND - Hand Delivered Yudelka Days: Prior Verbal Notification: Recipient Understood Notice: Yes Recipient Signature: Yes Med Rec Note Co-signed by Attending: Coverage Notice Comment: Reviewer: [id number] Hauser Notice Issued Date-Time: 05/29/2018 9:50 Notice Type: Patient Choice Letter Notice Delivered To: Patient Relationship to Patient: Beam House Inspector Name: Delivery Method: HAND - Hand Delivered Yudelka Days: Prior Verbal Notification: Recipient Understood Notice: Yes Recipient Signature: Yes Med Rec Note Co-signed by Attending: Coverage Notice Comment: WANTS [facility], IF DOESN'T QUALIFY .... [facility] FOR [facility] Last DP export: 05/29/18 11:14 a Patient Name: ISABELLE BAGLEY Page 35993 at 1352 All edits/amendments must be made on the electronic document DICTATION DATE: 05/29/18 1352 DAIRY INSPECTOR: ANNA 05/29/18 1352 RPT#: [id number] DC DATE: STATUS: ADM IN [facility] [address] [place] [address] END OF REPORT
[2018-05-29] MEDS ORDERED: NORCO-7.5 PO (13:57)
--- NOTE | 2018-05-29 15:15 | NUR ---
PATIENT RECIEVED DC INSTRUCTIONS. CALLED REPORT TO THE [facility][1] AT THIS TIME. NO QUESTIONS. AWAITING TRANSPORTATION.
--- NOTE | 2018-05-29 15:30 | NUR ---
PATIENT IV REMOVED BY LESTER RINCON.
--- NOTE | 2018-05-29 15:33 | MORECARE ---
CASE MANAGEMENT DISCHARGE SUMMARY PATIENT: ISABELLE BAGLEY ANN UNIT: [id number] ADM DATE: 05/25/18 AGE: 87 : 30 SEX: F ROOM/BED: D.2203 AUTHOR: VAZQUEZ,DOC PHYSICIAN: REFERRING PHYSICIAN: MIN SCOTT MD DATE OF SERVICE: 05/29/18 Discharge Plan Patient Name: ISABELLE BAGLEY Facility: [facility]:[place] : 1930 Planned Disposition: Care Home Facility Anticipated Discharge Date: Discharge Date: Expected LOS: Initial Reviewer: [id number] Initial Review Date: 05/25/2018 Generated: 05/29/18 4:32 pm Comments DCP- Discharge Planning Updated by [email or web address]: Brenna Hauser on 05/29/18 2:[address] Patient Name: ISABELLE BAGLEY Admission Status: ER Accout number: [id number] Admission Date: 05-25-2018 : 1930 Admission Diagnosis: Attending: MIN SCOTT Current LOS: 4 Anticipated DC Date: Planned Disposition: Inpatient Rehab Primary Insurance: MEDICARE A & B Discharge Planning Comments: CM MET WITH PATIENT, SHE WANTS INPATIENT REHAB. IF DOESN'T QUALIFY FOR THAT SHE WANTS SNF AT THE [facility] OR [facility]. DAMION SIGNED. IMM SIGNED. CONTINUE TO FOLLOW AND ASSIST NEEDED WITH DC PLANNING/NEEDS. Superintendent Oil Field Drilling: Brenna Hauser Appended by Brenna Hauser on 05/29/2018 12:10 CDT: REFERRAL FAXED TO THE [facility] FOR SNF. [facility]. Appended by Brenna Hauser on 05/29/2018 15:24 CDT: TANNER FROM THE [facility] IS ON HER WAY TO SEE THE PATIENT. TANNER RECEIVED REFERRAL. DCP- Discharge Planning Updated by [id number]: Latha Parekh on 05/26/18 2:[address] Patient Name: ISABELLE BAGLEY Admission Status: ER Accout number: [id number] Admission Date: 05-25-2018 : 1930 Admission Diagnosis: Attending: MIN SCOTT Current LOS: 1 Anticipated DC Date: Planned Disposition: Inpatient Rehab Primary Insurance: MEDICARE A & B Discharge Planning Comments: CM met with patient to assess discharge planning needs. Patient stated that she lives independently at home where she lives by herself. She stated that her home is a safe place, her sister will be driving her home. She has a walker and a cane. I asked her about surgery and she thinks she should have surgery now. After surgery she would like to go to inpatient rehab. CM will continue to follow and assist with dc planning needs. Superintendent Oil Field Drilling: Latha Parekh DCPIA - Discharge Planning Initial Assessment Updated by [email or web address]: Latha Parekh on 05/26/18 3:56 pm * Is the patient Alert and Oriented? Yes * How many steps to enter\exit or inside your home? * PCP TYLER * Pharmacy [facility] [address] * Preadmission Environment Home Alone * ADLs Independent * Equipment Cane Rolling Walker * List name and contact numbers for known caregivers / representatives who currently or will assist patient after discharge: SAMUEL WHITE [phone] * Verbal permission to speak to the caregivers and representatives has been obtained from the patient. Yes * Community resources currently utilized None * Additional services required to return to the preadmission environment? Yes * Can the patient safely return to the preadmission environment? No * Has this patient been hospitalized within the prior 30 days at any hospital? No Coverage Notice Reviewer: [id number] Tu Hauser Notice Issued Date-Time: 05/29/2018 9:50 Notice Type: IM Discharge Notice Notice Delivered To: Patient Relationship to Patient: Berry Picker Machine Operator Name: Delivery Method: HAND - Hand Delivered Yudelka Days: Prior Verbal Notification: Recipient Understood Notice: Yes Recipient Signature: Yes Med Rec Note Co-signed by Attending: Coverage Notice Comment: Reviewer: [id number] Tu Hauser Notice Issued Date-Time: 05/29/2018 9:50 Notice Type: Patient Choice Letter Notice Delivered To: Patient Relationship to Patient: Berry Picker Machine Operator Name: Delivery Method: HAND - Hand Delivered Yudelka Days: Prior Verbal Notification: Recipient Understood Notice: Yes Recipient Signature: Yes Med Rec Note Co-signed by Attending: Coverage Notice Comment: WANTS [facility], IF DOESN'T QUALIFY .... [facility] FOR SNF [facility] DP export: 05/29/18 12:52 p Patient Name: ISABELLE BAGLEY Page 23988 at 1533 All edits/amendments must be made on the electronic document DICTATION DATE: 05/29/181531 NUCLEAR WEAPONS SPECIALIST: ANNA 05/29/181531 RPT#: [id number] DC DATE: STATUS: ADM IN [facility] [address] [place] [address] END OF REPORT
--- NOTE | 2018-05-29 16:04 | MORECARE ---
CASE MANAGEMENT DISCHARGE SUMMARY PATIENT: ISABELLE BAGLEY ANN UNIT: [id number] ADM DATE: 05/25/18 AGE: 87 : 30 SEX: F ROOM/BED: D.2209 AUTHOR: VAZQUEZ,DOC PHYSICIAN: REFERRING PHYSICIAN: MIN SCOTT MD DATE OF SERVICE: 05/29/18 Discharge Plan Patient Name: ISABELLE BAGLEY Facility: [facility]:[place] : 1930 Planned Disposition: Fdc Facility Anticipated Discharge Date: 05/29/18 Discharge Date: Expected LOS: 4 Initial Reviewer: [id number] Initial Review Date: 05/25/2018 Generated: 05/29/18 5:03 pm Comments DCP- Discharge Planning Updated by [email or web address]: Brenna Hauser on 05/29/18 3:[address] Patient Name: ISABELLE BAGLEY Admission Status: ER Accout number: [id number] Admission Date: 05-25-2018 : 1930 Admission Diagnosis:UNSP DISP FX OF SURGICAL NECK OF LEFT HUMERUS, INIT Attending: MIN SCOTT Current LOS: 4 Anticipated DC Date: 05-29-2018 Planned Disposition: Fdc Facility Primary Insurance: MEDICARE A & B Discharge Planning Comments: PATIENT ACCEPTED AT THE [facility]. SPOKE WITH TANNER AND THEY WILL SEND A VAN TO PICK HER UP. NURSE TO CALL REPORT TO [phone] OR [phone]. Hoist Worker: Brenna Hauser DCP- Discharge Planning Updated by [id number]: Brenna Hauser on 05/29/18 2:[address] Patient Name: ISABELLE BAGLEY Admission Status: ER Accout number: [id number] Admission Date: 05-25-2018 : 1930 Admission Diagnosis: Attending: MIN SCOTT Current LOS: 4 Anticipated DC Date: Planned Disposition: Inpatient Rehab Primary Insurance: MEDICARE A & B Discharge Planning Comments: CM MET WITH PATIENT, SHE WANTS INPATIENT REHAB. IF DOESN'T QUALIFY FOR THAT SHE WANTS SNF AT THE [facility] OR [facility]. DAMION SIGNED. IMM SIGNED. CONTINUE TO FOLLOW AND ASSIST NEEDED WITH DC PLANNING/NEEDS. Hoist Worker: Brenna Hauser Appended by Brenna Hauser on 05/29/2018 12:10 CDT: REFERRAL FAXED TO THE [facility] FOR SNF. [facility]. Appended by Brenna Hauser on 05/29/2018 15:24 CDT: TANNER FROM THE [facility] IS ON HER WAY TO SEE THE PATIENT. TANNER RECEIVED REFERRAL. DCP- Discharge Planning Updated by [id number]: Latha Lazarken on 05/26/18 2:[address] Patient Name: ISABELLE BAGLEY Admission Status: ER Accout number: [id number] Admission Date: 05-25-2018 : 1930 Admission Diagnosis: Attending: MIN SCOTT Current LOS: 1 Anticipated DC Date: Planned Disposition: Inpatient Rehab Primary Insurance: MEDICARE A & B Discharge Planning Comments: CM met with patient to assess discharge planning needs. Patient stated that she lives independently at home where she lives by herself. She stated that her home is a safe place, her sister will be driving her home. She has a walker and a cane. I asked her about surgery and she thinks she should have surgery now. After surgery she would like to go to inpatient rehab. CM will continue to follow and assist with dc planning needs. Hoist Worker: Latha Parehk DCPIA - Discharge Planning Initial Assessment Updated by [email or web address]: Latha Lazarken on 05/26/18 3:56 pm * Is the patient Alert and Oriented? Yes * How many steps to enter\exit or inside your home? * PCP TYLER * Pharmacy [facility] ON [address] * Preadmission Environment Home Alone * ADLs Independent * Equipment Cane Rolling Walker * List name and contact numbers for known caregivers / representatives who currently or will assist patient after discharge: SAMUEL WHITE [phone] * Verbal permission to speak to the caregivers and representatives has been obtained from the patient. Yes * Community resources currently utilized None * Additional services required to return to the preadmission environment? Yes * Can the patient safely return to the preadmission environment? No * Has this patient been hospitalized within the prior 30 days at any hospital? No Coverage Notice Reviewer: [id number] - Brenna Analisa Notice Issued Date-Time: 05/29/2018 9:50 Notice Type: IM Discharge Notice Notice Delivered To: Patient Relationship to Patient: Fpga Design Engineer Name: Delivery Method: HAND - Hand Delivered Yudelka Days: Prior Verbal Notification: Recipient Understood Notice: Yes Recipient Signature: Yes Med Rec Note Co-signed by Attending: Coverage Notice Comment: Reviewer: [id number] Tu Hauser Notice Issued Date-Time: 05/29/2018 9:50 Notice Type: Patient Choice Letter Notice Delivered To: Patient Relationship to Patient: Fpga Design Engineer Name: Delivery Method: HAND - Hand Delivered Yudelka Days: Prior Verbal Notification: Recipient Understood Notice: Yes Recipient Signature: Yes Med Rec Note Co-signed by Attending: Coverage Notice Comment: WANTS [facility], IF DOESN'T QUALIFY .... [facility] FOR [id number] Last DP export: 05/29/18 2:32 p Patient Name: ISABELLE BAGLEY Page [phone] at 1604 All edits/amendments must be made on the electronic document DICTATION DATE: 05/29/18 160 GEOLOGICAL SPECIALIST: ANNA 05/29/18 160 RPT#: [id number] DC DATE: STATUS: ADM IN [facility] [address] [place] [address] END OF REPORT
[2018-05-29] MEDS ORDERED: ULTRAM50 MG PO (16:07)
--- NOTE | 2018-05-30 12:18 | MORECARE ---
CASE MANAGEMENT DISCHARGE SUMMARY PATIENT: ISABELLE BAGLEY ANN UNIT: [id number] ADM DATE: 05/25/18 AGE: 87 : 30 SEX: F ROOM/BED: D.2209 AUTHOR: VAZQUEZDOC PHYSICIAN: REFERRING PHYSICIAN: MIN SCOTT MD DATE OF SERVICE: 05/30/18 Discharge Plan Patient Name: ISABELLE BAGLEY Facility: [facility]:[place] : 1930 Planned Disposition: Alf Facility Anticipated Discharge Date: 05/29/18 Discharge Date: 05/29/2018 Expected LOS: 4 Initial Reviewer: [id number] Initial Review Date: 05/25/2018 Generated: 05/30/18 1:18 pm Comments DCP- Discharge Planning Updated by [email or web address]: Brenna Hauser on 05/29/18 3:[address] Patient Name: ISABELLE BAGLEY Admission Status: ER Accout number: [id number] Admission Date: 05-25-2018 : 1930 Admission Diagnosis:UNSP DISP FX OF SURGICAL NECK OF LEFT HUMERUS, INIT Attending: MIN SCOTT Current LOS: 4 Anticipated DC Date: 05-29-2018 Planned Disposition: Alf Facility Primary Insurance: MEDICARE A & B Discharge Planning Comments: PATIENT ACCEPTED AT THE [facility]. SPOKE WITH TANNER AND THEY WILL SEND A VAN TO PICK HER UP. NURSE TO CALL REPORT TO [phone]. Sales Host: Brenna Hauser DCP- Discharge Planning Updated by [email or web address]: Brenna Hauser on 05/29/18 2:[address] Patient Name: ISABELLE BAGLEY Admission Status: ER Accout number: [id number] Admission Date: 05-25-2018 : 1930 Admission Diagnosis: Attending: MIN SCOTT Current LOS: 4 Anticipated DC Date: Planned Disposition: Inpatient Rehab Primary Insurance: MEDICARE A & B Discharge Planning Comments: CM MET WITH PATIENT, SHE WANTS INPATIENT REHAB. IF DOESN'T QUALIFY FOR THAT SHE WANTS SNF AT THE [facility] OR [facility]. DAMION SIGNED. IMM SIGNED. CONTINUE TO FOLLOW AND ASSIST NEEDED WITH DC PLANNING/NEEDS. Sales Host: Brenna Hauser Appended by Brenna Hauser on 05/29/2018 12:10 CDT: REFERRAL FAXED TO THE [facility] FOR SNF. [facility]. Appended by Brenna Hauser on 05/29/2018 15:24 CDT: TANNER FROM THE [facility] IS ON HER WAY TO SEE THE PATIENT. TANNER RECEIVED REFERRAL. DCP- Discharge Planning Updated by [email or web address]: Latha Parekh on 05/26/18 2:[address] Patient Name: ISABELLE BAGLEY Admission Status: ER Accout number: [id number] Admission Date: 05-25-2018 : 1930 Admission Diagnosis: Attending: MIN SCOTT Current LOS: 1 Anticipated DC Date: Planned Disposition: Inpatient Rehab Primary Insurance: MEDICARE A & B Discharge Planning Comments: CM met with patient to assess discharge planning needs. Patient stated that she lives independently at home where she lives by herself. She stated that her home is a safe place, her sister will be driving her home. She has a walker and a cane. I asked her about surgery and she thinks she should have surgery now. After surgery she would like to go to inpatient rehab. CM will continue to follow and assist with dc planning needs. Sales Host: Latha Parekh DCPIA - Discharge Planning Initial Assessment Updated by [email or web address]: Latha Iglesia on 05/26/18 3:56 pm * Is the patient Alert and Oriented? Yes * How many steps to enter\exit or inside your home? * PCP TYLER * Pharmacy [facility] [address] * Preadmission Environment Home Alone * ADLs Independent * Equipment Cane Rolling Walker * List name and contact numbers for known caregivers / representatives who currently or will assist patient after discharge: ASMUEL WHITE [phone] * Verbal permission to speak to the caregivers and representatives has been obtained from the patient. Yes * Community resources currently utilized None * Additional services required to return to the preadmission environment? Yes * Can the patient safely return to the preadmission environment? No * Has this patient been hospitalized within the prior 30 days at any hospital? No Coverage Notice Reviewer: [email or web address] - Brenna Hauser Notice Issued Date-Time: 05/29/2018 9:50 Notice Type: IM Discharge Notice Notice Delivered To: Patient Relationship to Patient: Economics Department Chair Name: Delivery Method: HAND - Hand Delivered Yudelka Days: Prior Verbal Notification: Recipient Understood Notice: Yes Recipient Signature: Yes Med Rec Note Co-signed by Attending: Coverage Notice Comment: Reviewer: [id number] Tu Hauser Notice Issued Date-Time: 05/29/2018 9:50 Notice Type: Patient Choice Letter Notice Delivered To: Patient Relationship to Patient: Economics Department Chair Name: Delivery Method: HAND - Hand Delivered Yudelka Days: Prior Verbal Notification: Recipient Understood Notice: Yes Recipient Signature: Yes Med Rec Note Co-signed by Attending: Coverage Notice Comment: WANTS COUNTS INCLUDE 234 BEDS AT THE [facility], IF DOESN'T QUALIFY .... [facility] FOR [facility] [place] [facility] Last DP export: 05/29/18 3:03 p Patient Name: ISABELLE BAGLEY Page 30806 at 1218 All edits/amendments must be made on the electronic document DICTATION DATE: 05/30/18 1218 UNDERWATER TRAPPER: ANNA 05/30/18 1218 RPT#: [id number] DC DATE:05/29/18 STATUS: DIS IN [facility] [address] [place] [address] END OF REPORT
== END 2018-05-29 18:16 | DRG 494 ==
LOC: D.ER 16:37 → D.MS 20:19 → D.EDHOLD 20:19 → D.MS 20:22
PROVIDERS: Family Medicine; Orthopaedic Surgery; ADMIT Family Medicine; ATTEND Family Medicine
PROC: 0PSD04Z Reposition Left Humeral Head with Internal Fixation Device, Open Approach (ICD-10-PCS; principal; 2018-05-28 09:00)
DX: S42.212A Unspecified displaced fracture of surgical neck of left humerus, initial encounter for closed fracture (principal); I10 Essential (primary) hypertension; I69.30 Unspecified sequelae of cerebral infarction

== ENCOUNTER 2018-10-06 08:38 | Emergency (ER) | payer MEDICARE, OTHER ==
[~2018-10-06] VITALS: Ht 160 cm; Wt 68.2 kg
[~2018-10-06 08:38] MED LIST changes: +NORCO-7.5 PO; +ULTRAM50 MG PO
[2018-10-06 08:42] VITALS: Ht 160 cm; Wt 68.2 kg
[2018-10-06] MEDS ORDERED: SENNA LAXATIVE8.6 MG PO (08:45)
[2018-10-06] MEDS ORDERED: ASCORBIC ACID500 MG PO (08:46)
[2018-10-06] MEDS ORDERED: MULTI-DAY VITAM1 TAB PO (08:46)
[2018-10-06 09:09] LABS: BASOPHILS 0.3 % (0-2); EOSINOPHILS 2.6 % (0-7); HEMATOCRIT 43.4 % (36.0-48.0); HEMOGLOBIN 14.9 g/dL (12-16); IMMATURE GRANULOCYTES 0.3 % (0-5); LYMPHOCYTES 28.2 % (15-50); MCH 30.7 pg (26.0-34.0); MCHC 34.3 g/dL (31.0-37.0); MCV 89.5 fL (80.0-100.0); MEAN PLATELET VOLUME 9.9 fL (7.4-10.4); MONOCYTES 10.2 % (2-11); NEUTROPHILS 58.4 % (40-80); PLATELET COUNT 207 10x3/uL (130-400); RBC 4.85 10x6/uL (4.00-5.40); RDW 14.5 % (11.5-14.5); WBC 5.8 10x3/uL (4.8-10.8)
[2018-10-06 09:21] LABS: ALBUMIN 3.5 g/dL (3.4-5.0); ANION GAP 11.5 mmol/L (8-16); BILIRUBIN - TOTAL 0.68 mg/dL (0.2-1.3); CALCIUM 8.9 mg/dL (8.5-10.1); CARBON DIOXIDE 26.7 mmol/L (21.0-32.0); POTASSIUM - SERUM 4.2 mmol/L (3.5-5.1); PROTEIN - SERUM 7.1 g/dL (6.4-8.2)
[2018-10-06 09:34] LABS: APPEARANCE HAZY (CLEAR); BILIRUBIN NEGATIVE (NEGATIVE); COLOR YELLOW (YELLOW); GLUCOSE NEGATIVE (NEGATIVE); KETONE NEGATIVE (NEGATIVE); NITRITE NEGATIVE (NEGATIVE); PROTEIN NEGATIVE (NEGATIVE); SPECIFIC GRAVITY 1.015 (1.005-1.020); UROBILINOGEN NORMAL (NORMAL)
[2018-10-06 09:35] LABS: EPITHELIAL CELLS 0-5 /hpf (0-5); WHITE CELLS - URINE 0-5 /hpf (0-5)
[2018-10-06 09:36] LABS: BACTERIA MODERATE /hpf (NONE SEEN); MUCUS <1+ /lpf (NONE SEEN); RED CELLS - URINE RARE /hpf (0-5)
[2018-10-06] MEDS ORDERED: DIFLUCAN100 MG PO (10:14)
[2018-10-06 10:32] VITALS: BP 168/62
== END 2018-10-06 10:34 | disposition home or self-care (01) ==
LOC: D.ER 08:38
PROVIDERS: Family Medicine
DX: B37.3 Candidiasis of vulva and vagina (principal); I10 Essential (primary) hypertension; Z86.73 Personal history of transient ischemic attack (TIA), and cerebral infarction without residual deficits